=== PATIENT | female | born 1960 | race Caucasian/White ===

== ENCOUNTER → 2017-07-22 | Day surgery (SDC) | payer BC ==
[~2017-07-22] VITALS: Ht 160 cm; Wt 80.7 kg
[~2017-07-22] MED LIST: LIDOCAINE 2% INJ 100 MG/5 ML SDV (FOR ANES.) As Ordered ONE; LR 1,000 ML IV ONE; OMEP40CA2; PROPOFOL 200 MG/20 ML VIAL As Ordered ONE; VESI10TA2
--- NOTE | 2017-07-22 12:02 | ROOR ---
Patient Name: Michelle Landry Procedure Date: 07/22/2017 11:05 AM Date of : 1960 Age: 57 Room: [facility] Gender: Female Note Status: Finalized Procedure: Upper GI endoscopy Indications: Follow-up of esophageal reflux, Family history of esophageal cancer Providers: Jarvis Rizvi MD Referring MD: JESSIE SOUZA JR, MD Requesting Provider: Medicines: Monitored Anesthesia Care Complications: No immediate complications. Procedure: Pre-Anesthesia Assessment: - Prior to the procedure, a History and Physical was performed, and patient medications and allergies were reviewed. The patient is competent. The risks and benefits of the procedure and the sedation options and risks were discussed with the patient. All questions were answered and informed consent was obtained. Patient identification and proposed procedure were verified by the physician, the nurse and the satellite tv technician installer in the procedure room. Mental Status Examination: alert and oriented. Airway Examination: normal oropharyngeal airway and neck mobility. CV Examination: regular rate and rhythm. Prophylactic Antibiotics: The patient does not require prophylactic antibiotics. Prior Anticoagulants: The patient has taken no previous anticoagulant or antiplatelet agents. ASA Grade Assessment: II - A patient with mild systemic disease. After reviewing the risks and benefits, the patient was deemed in satisfactory condition to undergo the procedure. The anesthesia plan was to use monitored anesthesia care (MAC). Immediately prior to administration of medications, the patient was re-assessed for adequacy to receive sedatives. The heart rate, respiratory rate, oxygen saturations, blood pressure, adequacy of pulmonary ventilation, and response to care were monitored throughout the procedure. The physical status of the patient was re-assessed after the procedure. The Endoscope was introduced through the mouth, and advanced to the second part of duodenum. The upper GI endoscopy was accomplished without difficulty. The patient tolerated the procedure well. Findings: The examined esophagus was normal. The Z-line was regular and was found 34 cm from the incisors. The entire examined stomach was normal. The first portion of the duodenum and second portion of the duodenum were normal. Impression: - Normal esophagus. - Z-line regular, 34 cm from the incisors. - Normal stomach. - Normal first portion of the duodenum and second portion of the duodenum. - No specimens collected. Recommendation: - Discharge patient to home. - Resume previous diet. - Continue present medications. Jarvis Rizvi MD 07/22/2017 12:01:19 PM Number of Addenda: 0 Note Initiated On: 07/22/2017 11:05 AM Estimated Blood Loss: Estimated blood loss: none.
--- NOTE | 2017-07-22 12:05 | ROOR ---
Patient Name: Michelle Landry Procedure Date: 07/22/2017 11:06 AM Date of : 1960 Age: 57 Room: [facility] Gender: Female Note Status: Finalized Procedure: Colonoscopy Indications: Screening in patient at increased risk: Colorectal cancer in sister before age 60 Providers: Jarvis Rizvi MD Referring MD: JESSIE SOUZA JR, MD Requesting Provider: Medicines: Monitored Anesthesia Care Complications: No immediate complications. Procedure: Pre-Anesthesia Assessment: - Prior to the procedure, a History and Physical was performed, and patient medications and allergies were reviewed. The patient is competent. The risks and benefits of the procedure and the sedation options and risks were discussed with the patient. All questions were answered and informed consent was obtained. Patient identification and proposed procedure were verified by the physician, the nurse and the semiconductor bonder in the procedure room. Mental Status Examination: alert and oriented. Airway Examination: normal oropharyngeal airway and neck mobility. CV Examination: regular rate and rhythm. Prophylactic Antibiotics: The patient does not require prophylactic antibiotics. Prior Anticoagulants: The patient has taken no previous anticoagulant or antiplatelet agents. ASA Grade Assessment: II - A patient with mild systemic disease. After reviewing the risks and benefits, the patient was deemed in satisfactory condition to undergo the procedure. The anesthesia plan was to use monitored anesthesia care (MAC). Immediately prior to administration of medications, the patient was re-assessed for adequacy to receive sedatives. The heart rate, respiratory rate, oxygen saturations, blood pressure, adequacy of pulmonary ventilation, and response to care were monitored throughout the procedure. The physical status of the patient was re-assessed after the procedure. The Colonoscope was introduced through the anus and advanced to the cecum, identified by appendiceal orifice and ileocecal valve. The colonoscopy was somewhat difficult due to a tortuous colon. The patient tolerated the procedure well. The quality of the bowel preparation was excellent. Findings: The perianal and digital rectal examinations were normal. A 4 mm polyp was found in the hepatic flexure. The polyp was sessile. The polyp was removed with a jumbo cold forceps. Resection and retrieval were complete. The exam was otherwise without abnormality. Impression: - One 4 mm polyp at the hepatic flexure, removed with a jumbo cold forceps. Resected and retrieved. - The examination was otherwise normal. Recommendation: - Discharge patient to home. - Resume previous diet. - Continue present medications. - Await pathology results. - Telephone endoscopist for pathology results in 1 week. Jarvis Rizvi MD 07/22/2017 12:05:17 PM Number of Addenda: 0 Note Initiated On: 07/22/2017 11:06 AM Estimated Blood Loss: Estimated blood loss was minimal.
[2017-07-22 12:25] VITALS: BP 140/72
== END | disposition home or self-care (01) ==
LOC: M OPP 09:37
PROVIDERS: ATTEND Surgery
DX: Z12.11 Encounter for screening for malignant neoplasm of colon (principal); Z80.0 Family history of malignant neoplasm of digestive organs; D12.3 Benign neoplasm of transverse colon; K21.9 Gastro-esophageal reflux disease without esophagitis; R12 Heartburn; E66.9 Obesity, unspecified; Z86.14 Personal history of Methicillin resistant Staphylococcus aureus infection; Z78.0 Asymptomatic menopausal state; R32 Unspecified urinary incontinence; Z79.899 Other long term (current) drug therapy

== ENCOUNTER → 2017-09-16 | Outpatient (CLI) | payer BC ==
[2017-09-16 08:07] LABS: RHEUMATOID FACTOR QUANT < 10.0 IU/ML (0-15.0)
[2017-09-16 09:16] LABS: DRVV SCREEN 37.6 SEC
[2017-09-16 09:26] LABS: PTT LUPUS TYPE ANTICOAG SCREEN 0.9 (0-1.2)
[2017-09-17 10:01] LABS: THYROGLOBULIN ANTIBODY < 15.0 U/ML (<60.0)
[2017-09-17 10:01] LABS: THYROID PEROXIDASE ANTIBODY < 28.0 U/ML (<60.0)
[2017-09-17 10:41] LABS: HIV 1&2 SCREEN CENTAUR NEGATIVE (NEGATIVE)
== END ==
LOC: M LAB 06:20
DX: R26.9 Unspecified abnormalities of gait and mobility (principal)
CPT/HCPCS: 86800

== ENCOUNTER → 2019-07-11 | Outpatient (CLI) | payer BC ==
[~2019-07-11] MED LIST changes: -LIDOCAINE 2% INJ 100 MG/5 ML SDV (FOR ANES.) As Ordered ONE; -LR 1,000 ML IV ONE; -OMEP40CA2; +OMEP40CA97; -PROPOFOL 200 MG/20 ML VIAL As Ordered ONE
--- NOTE | 2019-07-11 15:22 | REP ---
LUMBAR SPINE COMPLETE: 07/11/2019. CLINICAL HISTORY: Low back pain after a fall. FINDINGS: Five views are provided. COMPARISON: Lumbar spine 03/19/2016. FINDINGS: The AP view shows very mild levoconvex curve centered at L2. Pedicle, spinous, and transverse processes, as well as the lower thoracic levels and ribs are without acute finding. Sacral ala, foramina, and SI joints are intact. Pelvic ring visible was unremarkable. Small marginal osteophyte acetabular roof on the left. Hip joint space is symmetric bilaterally. Iliac wings intact. The oblique images show some facet arthropathy L5-S1 and less at L4-5. The lateral view shows a few millimeters of anterolisthesis of L4 on 5 due to facet arthropathy. No spondylolysis. Slight disc space narrowing at that level at L5-S1. The L3-4 levels and above were intact. Marginal osteophytes at T12-L1 and above. No compression deformities. IMPRESSION: 1. Some degenerative disc changes at L4-L5 and L5-S1 without spondylolysis, but there is spondylolisthesis of a few millimeters L4 on L5 due to facet arthropathy. 2. Slight disc space narrowing at L4-L5 and L5-S1. No compression deformity or other acute finding. Electronically Signed by Ravindra Chen MD 07/11/2019 05:21 P
== END ==
LOC: M LRY 14:16
PROVIDERS: ATTEND Physician Assistant
DX: M43.16 Spondylolisthesis, lumbar region (principal); M51.36 Other intervertebral disc degeneration, lumbar region; M51.37 Other intervertebral disc degeneration, lumbosacral region; M48.061 Spinal stenosis, lumbar region without neurogenic claudication; M54.41 Lumbago with sciatica, right side

== ENCOUNTER → 2019-10-16 | Outpatient (CLI) | payer BC ==
[2019-10-16 15:01] LABS: RHEUMATOID FACTOR QUANT < 10.0 IU/ML (<15.0)
[2019-10-18 09:42] LABS: VITAMIN B12 LEVEL 515 PG/ML (247-911)
[2019-10-18 09:43] LABS: FOLATE 13.4 NG/ML (>5.4)
== END ==
LOC: M WUC 12:51
PROVIDERS: ATTEND Psychiatry & Neurology Neurology
DX: E55.9 Vitamin D deficiency, unspecified (principal)

== ENCOUNTER → 2020-05-25 | Outpatient (CLI) | payer BC | LOC: M WUC 13:40 | PROVIDERS: ATTEND Psychiatry & Neurology Neurology | DX: E53.9 Vitamin B deficiency, unspecified (principal); R27.0 Ataxia, unspecified ==

== ENCOUNTER → 2021-10-29 | Outpatient (CLI) | payer BC ==
[~2021-10-29] MED LIST changes: +OMEP40CA4; -OMEP40CA97
== END ==
LOC: M WUC 13:58
PROVIDERS: ATTEND Psychiatry & Neurology Neurology
DX: E53.8 Deficiency of other specified B group vitamins (principal)

== ENCOUNTER → 2022-09-01 | Outpatient (CLI) | payer BC ==
[~2022-09-01] MED LIST changes: +ENAL-36; +OMEP40CA5; +OSEL75CA2; +TOLT4CAP3
== END ==
LOC: M LABSMTC 09:14
PROVIDERS: ATTEND Anesthesiology
DX: Z01.812 Encounter for preprocedural laboratory examination (principal); Z11.52 Encounter for screening for COVID-19

== ENCOUNTER 2022-09-05 07:04 | Day surgery (SDC) | payer BC ==
[~2022-09-05] VITALS: Ht 157.5 cm; Wt 80.7 kg
[~2022-09-05 07:04] MED LIST changes: +NS 1,000 ML IV ONE
[2022-09-05] MEDS ORDERED: LIDOCAINE 2% 100MG/5ML SDV (FOR ANES.) As Ordered ONE (07:06)
[2022-09-05] MEDS ORDERED: propofoL 200 MG/20 ML VIAL As Ordered ONE ×2 (07:06→08:29)
[2022-09-05 09:05] VITALS: BP 103/64
== END 2022-09-05 09:05 | disposition home or self-care (01) ==
LOC: M OPP 07:04
PROVIDERS: ATTEND Surgery
DX: Z12.11 Encounter for screening for malignant neoplasm of colon (principal); Z86.010 Personal history of colon polyps; Z80.0 Family history of malignant neoplasm of digestive organs; K64.2 Third degree hemorrhoids; Z79.899 Other long term (current) drug therapy; I10 Essential (primary) hypertension; N39.41 Urge incontinence; G12.23 Primary lateral sclerosis; J38.1 Polyp of vocal cord and larynx

== ENCOUNTER → 2023-03-10 | Outpatient (REF) | payer BC ==
[~2023-03-10] MED LIST changes: -ENAL-36; +ENAL1TAB50; -NS 1,000 ML IV ONE
== END ==
LOC: M LAB REF 11:55
PROVIDERS: ATTEND Nurse Practitioner Adult Health
DX: R71.8 Other abnormality of red blood cells (principal)

== ENCOUNTER → 2024-01-28 | Outpatient (CLI) | payer BC ==
[~2024-01-28] MED LIST changes: +PROHANCE 279.3MG/ML 15ML VIAL ONE; +PROHANCE 279.3MG/ML 5ML VIAL ONE
== END ==
LOC: M PLAIMG 11:01
PROVIDERS: ATTEND Nurse Practitioner Adult Health
DX: D35.4 Benign neoplasm of pineal gland (principal); I67.82 Cerebral ischemia; R90.82 White matter disease, unspecified
CPT/HCPCS: 70553; A9576

== ENCOUNTER → 2024-10-27 | Outpatient (CLI) | payer BC ==
[~2024-10-27] MED LIST changes: -PROHANCE 279.3MG/ML 15ML VIAL ONE; -PROHANCE 279.3MG/ML 5ML VIAL ONE
== END ==
LOC: M WUC 14:23
PROVIDERS: ATTEND Nurse Practitioner Adult Health
DX: M25.562 Pain in left knee (principal)

== ENCOUNTER 2025-04-07 08:26 | Day surgery (SDC) | payer BC ==
[~2025-04-07] VITALS: Ht 160 cm; Wt 88.5 kg
[2025-04-07] MEDS: BSS IRRIG/VANCO(10MG)/TOBRA(5MG)/EPINEPH(1:1000-0.5CC)500ML BAG-ORONLY As Ordered ONE (07:19)
[~2025-04-07 08:26] MED LIST changes: +ALEN70TA82 PO; +ENAL1TAB50 PO; +LEXA1TAB PO; +OMEP40CA4 PO; +PHENYLEPHRINE 10% OPHTH SOL 5ML OS PRN; +VESI5TAB2 PO
[2025-04-07] MEDS: TROPICAMIDE 1% OPHTH SOLN 15ML OS SCH (09:28)
[2025-04-07] MEDS: LIDOCAINE 3.5% 1 ML OPHTH TOPICAL GEL OU ONE (09:28)
[2025-04-07] MEDS: OFLOXACIN 0.3 % (OCUFLOX) OPTH SOL 5ML OS ONE (09:28)
[2025-04-07] MEDS: CYCLOPENTOLATE 1% OPHTH SOLN 2 ML BTL OS SCH (09:28)
[2025-04-07] MEDS: PHENYLEPHRINE 2.5% OPHTH SOL 2ML OS SCH (09:28)
[2025-04-07] MEDS ORDERED: MIDAZOLAM INJ 2 MG/2 ML VIAL As Ordered ONE (09:28)
[2025-04-07] MEDS: LIDOCAINE 1% SDV 5 ML VIAL As Ordered ONE (10:29)
[2025-04-07] MEDS: CEFUROXIME 1 MG/0.1 ML INTRACAMERAL INJ As Ordered ONE (10:31)
[2025-04-07 10:45] VITALS: BP 141/65; TEMP 97.1; O2SAT 98
== END 2025-04-07 11:02 | disposition home or self-care (01) ==
LOC: M SDC 08:26
PROVIDERS: ATTEND Ophthalmology
DX: H25.12 Age-related nuclear cataract, left eye (principal); I10 Essential (primary) hypertension; K21.9 Gastro-esophageal reflux disease without esophagitis; Z79.899 Other long term (current) drug therapy; R32 Unspecified urinary incontinence
CPT/HCPCS: 66984; J0697; J2250; J3010; V2632

== ENCOUNTER 2025-05-05 10:57 | Day surgery (SDC) | payer BC ==
[~2025-05-05] VITALS: Ht 160 cm; Wt 87.1 kg
[~2025-05-05 10:57] MED LIST changes: +CYCLOPENTOLATE 1% OPHTH SOLN 2 ML BTL OD SCH; +LIDOCAINE 3.5% 1 ML OPHTH TOPICAL GEL OU ONE; +MIDAZOLAM INJ 2 MG/2 ML VIAL As Ordered ONE; +OFLOXACIN 0.3 % (OCUFLOX) OPTH SOL 5ML OD ONE; +PHENYLEPHRINE 10% OPHTH SOL 5ML OD PRN; -PHENYLEPHRINE 10% OPHTH SOL 5ML OS PRN; +PHENYLEPHRINE 2.5% OPHTH SOL 2ML OD SCH; +TROPICAMIDE 1% OPHTH SOLN 15ML OD SCH
[2025-05-05] MEDS: LIDOCAINE 3.5% 1 ML OPHTH TOPICAL GEL OU ONE (14:12)
[2025-05-05] MEDS: OFLOXACIN 0.3 % (OCUFLOX) OPTH SOL 5ML OD ONE (14:12)
[2025-05-05] MEDS: TROPICAMIDE 1% OPHTH SOLN 15ML OD SCH (14:13)
[2025-05-05] MEDS: CYCLOPENTOLATE 1% OPHTH SOLN 2 ML BTL OD SCH (14:13)
[2025-05-05] MEDS: PHENYLEPHRINE 2.5% OPHTH SOL 2ML OD SCH (14:13)
[2025-05-05] MEDS: LIDOCAINE 1% SDV 5 ML VIAL As Ordered ONE (15:08)
[2025-05-05] MEDS: CEFUROXIME 1 MG/0.1 ML INTRACAMERAL INJ As Ordered ONE (15:09)
[2025-05-05] MEDS: BSS IRRIG/VANCO(10MG)/TOBRA(5MG)/EPINEPH(1:1000-0.5CC)500ML BAG-ORONLY As Ordered ONE (15:09)
[2025-05-05 15:24] VITALS: BP 145/68; TEMP 97.7; O2SAT 96
== END 2025-05-05 15:42 | disposition home or self-care (01) ==
LOC: M SDC 10:57
PROVIDERS: ATTEND Ophthalmology
DX: H25.11 Age-related nuclear cataract, right eye (principal); I10 Essential (primary) hypertension; K21.9 Gastro-esophageal reflux disease without esophagitis; F41.9 Anxiety disorder, unspecified; F32.A Depression, unspecified; Z79.899 Other long term (current) drug therapy
CPT/HCPCS: 66984; J0697; J2250; J3010; V2632